=== PATIENT | female | born 2005 | race Two or more races ===

== ENCOUNTER 2024-05-14 01:09 | Emergency (ER) | payer BC ==
[~2024-05-14] VITALS: Ht 165.1 cm; Wt 56.7 kg
[2024-05-14] MEDS ORDERED: RINGERS SOLUTION,LACTATED 1,000 ML IV STA (02:07)
[2024-05-14 02:50] LABS: HEMATOCRIT 39.3 % (36.0-45.00); HEMOGLOBIN 13.8 g/dL (12.0-15.00); MEAN CELL VOLUME 95.7 fL (80.00-100.00); MEAN CORPUSCULAR HEMOGLOBIN 33.5 pg (27.00-32.0); PLATELET COUNT 195 K/uL (150-450); RED BLOOD COUNT 4.11 M/uL (4.00-6.00); URINE APPEARANCE Clear; URINE BILIRRUBIN Negative (NEGATIVE); URINE BLOOD Negative; URINE COLOR Yellow; URINE GLUCOSE Negative (NEGATIVE); URINE KETONE Trace (NEGATIVE); URINE LEUKOCYTE Small; URINE NITRATE Negative; URINE PROTEIN Trace (NEGATIVE)
[2024-05-14 02:53] LABS: URINE BACTERIA 436.9 uL (0.0-1933); URINE EPITHELIAL CELLS 40.8 uL (0.0-38.8)
[2024-05-14 03:01] LABS: URINE CAST 0.29 uL (0.0-1.40); URINE RBC 1.1 uL (0.0-20.8)
[2024-05-14 03:10] LABS: CALCIUM 9.1 mg/dL (8.5-10.1); CREATININE SERUM 0.93 mg/dL (0.55-1.02); GFR 76.86; POTASSIUM 3.85 mEq/L (3.5-5.1)
[2024-05-14] MEDS ORDERED: ONDANSETRON HCL 2 MG/ML VIAL IV STA (04:21)
[2024-05-14 08:45] VITALS: BP 884/51; O2SAT 98
[2024-05-14] MEDS ORDERED: LACTOBACILLUS ACIDOPHILUS 1 CAP CAP PO STA (09:09)
[2024-05-14] MEDS ORDERED: FAMOTIDINE/PF 20 MG/2 ML VIAL IV PUSH STA (09:13)
== END 2024-05-14 09:43 | disposition home or self-care (01) ==
LOC: ER 01:11 → EMR PED 01:11
DX: K52.9 Noninfective gastroenteritis and colitis, unspecified (principal); R10.9 Unspecified abdominal pain
CPT/HCPCS: 36415; 74177; Q9965